=== PATIENT | male | born 1950 | race Two or more races ===

== ENCOUNTER 2020-05-14 14:54 | Emergency (ER) | payer MEDICARE, SELFPAY ==
[2020-05-14 16:40] VITALS: BP 124/71; PULSE 98; RESP 16; TEMP 36.4; O2SAT 98; BMI 31.3
[2020-05-14 20:20] VITALS: BP 141/94; PULSE 86; RESP 16; TEMP 36.8; O2SAT 98
--- NOTE | 2020-05-14 20:55 | CT_ITS ---
EXAMINATION: CT ABDOMEN AND PELVIS WITHOUT CONTRAST CLINICAL INFORMATION: Left flank pain. Left UVJ stone. COMPARISON: Renal ultrasound 01/27/2019. CT scan abdomen pelvis 02/18/2018. KUB 07/17/2009, 01/18/2010 TECHNIQUE: Multidetector volumetric imaging was performed from the superior aspect of the liver through the pubic symphysis. Sagittal and coronal reformatted images were obtained on the technologist's workstation. This CT examination was performed using dose optimization techniques as appropriate, variously including the following: *Automated exposure control *Adjustment of mA and/or kV according to patient size (this includes techniques or standardized protocols for targeted exams where dose is matched to indication/reason for exam; i.e. extremities or head) *Use of iterative reconstruction technique DLP: 666 mGy-cm FINDINGS: LUNG BASES: The visualized lung bases are unremarkable. LIVER, GALLBLADDER, AND BILIARY TREE: The liver is normal in size, shape, and attenuation. No focal hepatic lesion or biliary ductal dilatation is present. The gallbladder is unremarkable with no evidence of radiopaque gallstones, gallbladder wall thickening, or obvious pericholecystic inflammatory changes. PANCREAS: Unremarkable. SPLEEN: Unremarkable. ADRENAL GLANDS: Unremarkable. KIDNEYS AND URETERS: Right kidney: Linear 3 mm calcification lower pole of the right kidney is nonobstructive. No ureteral stone. No hydronephrosis. Left kidney: There is moderate hydronephrosis with distention renal pelvis and calyces with edema around the collecting system. There is left hydroureter to the ureterovesical junction. There are multiple stones in the left ureter. There is a stone in the mid proximal ureter at about the level of L4-L5 that measures 7 x 4 mm. More distally in the left ureter just proximal to the ureterovesical junction is a cluster of 3 stones. There is a 5 mm stone there are 2 smaller stones measuring about 3 mm just distal to the larger stone. In the left kidney there is a 3 mm stone in the upper pole There is a parapelvic cyst in the upper pole measuring 3.8 cm. BLADDER: Partially filled. No bladder calculus or mass. GASTROINTESTINAL TRACT: There are scattered diverticula throughout the colon. There is no diverticulitis. There is no bowel wall thickening /edema. There is no bowel obstruction. There is a moderate volume of stool in the colon. The appendix is normal . The small bowel loops are unremarkable. The stomach is normal. There is no hiatal hernia. ABDOMINAL WALL: No significant hernia is appreciated. LYMPH NODES: Normal. VASCULAR: Unremarkable. PELVIC VISCERA: Prostate measures 4.6 cm transverse. Small calcifications in the prostate. OSSEOUS STRUCTURES: Unremarkable. CT/CT abdomen pelvis wo con IMPRESSION: 1. Moderate hydronephrosis of left kidney due to multiple stones in the left ureter. There are small nonobstructive bilateral renal stones as well. 2. Scattered diverticula of the colon. There is no acute abnormality of the bowel.
--- NOTE | 2020-05-14 21:26 | ED_ITS ---
HPI - Abdominal Pain General Chief Complaint: Abdominal Pain Stated Complaint: kidney stone Time Seen by Provider: 05/14/20 20:52 Source: patient Mode of arrival: ambulatory Limitations: no limitations History of Present Illness HPI narrative: patient's history of kidney stone noticed sudden onset of sharp pain on the left flank since yesterday today pain is more localized in left lower quadrant associated with nausea and vomiting patient denies any fever or diarrhea no other symptoms otherwise MD elicited complaint: abdominal pain Pertinent past history: none Onset (ago): day(s) (2) Pain Consistency: constant Related Data Previous Rx's Medication Instructions Recorded oxycodone 5 mg PO Q6H PRN #20 tab 05/14/20 tamsulosin [Flomax] 0.4 mg PO DAILY #14 cap 05/14/20 Allergies Allergy/AdvReac Type Severity Reaction Status Date / Time No Known Allergies Allergy Unverified 03/26/20 17:01 [No Known Allergies*] Review of Systems Review of Systems REVIEW OF SYSTEMS: Pertinent positives and negatives are stated above in the history. GEN: no fevers, chills, fatigue HEENT: no nasal congestion, sore throat, ear pain NEURO: no headache, dizziness, focal weakness PULM: no cough, shortness of breath CV: no chest pain, palpitations, LE edema ABD: no diarrhea /melena : no dysuria, urgency, frequency SKIN: no rash ROS otherwise negative x 10 Physical Exam Vital Signs: Vital Signs: Last Vital Signs Temp 98.3 F 05/14/20 20:20 Pulse 86 05/14/20 20:20 Resp 16 05/14/20 20:20 BP 141/94 H 05/14/20 20:20 Pulse Ox 98 05/14/20 20:20 Body Mass Index 31.3 Appearance: Alert. Oriented X3. in moderate distress. Eyes: Pupils equal, round and reactive to light. ENT: Pharynx normal. Neck: Normal inspection. Neck supple. CVS: Normal heart rate and rhythm. Pulses normal. Respiratory: No respiratory distress. Breath sounds normal. Abdomen: Soft and mild tenderness left lower quadrant and left flank area no rebound tenderness or guarding no mass palpable no hernia palpable Skin: Skin warm and dry. Normal skin color. Normal skin turgor. Extremities: No lower extremity edema. Good range of movement Neuro: Oriented X 3. No motor deficit. No sensory deficit. Course Course Course Narrative: patient with multiple left ureteric stone with hydronephrosis at this time patient is much better from pain saleem will discharge him home on oxycodone advised to follow-up with urologist MDM - Abdominal Pain Differential Diagnosis Differential diagnosis: Likely calculus of kidney and diverticulitis Lab Data Attestation: I reviewed the patient's lab results. Result diagrams: 05/14/20 21:21 05/14/20 21:46 Labs: Lab Results 05/14/20 05/14/20 05/14/20 Range/Units 21:21 21:21 21:21 WBC 10.9 H (4.8-10.8) X10*3/uL RBC 5.08 (4.60-5.80) X10*6/uL Hgb 15.8 (14.0-18.0) g/dl Hct 47.5 (42-52) % MCV 93.5 (80-98) fL MCH 31.1 (27.0-33.0) pg MCHC 33.3 (31.0-36.0) g/dl RDW 12.1 (11.0-16.0) % Plt Count 189 (160-400) X10*3/uL MPV 11.2 (9.4-12.4) fL Immature Gran % (Auto) 0.3 (0.0-0.4) % Neut % (Auto) 66.9 (45-73) % Lymph % (Auto) 23.3 (20-40) % [place] % (Auto) 7.0 (2-11) % Eos % (Auto) 2.2 (0-4) % Baso % (Auto) 0.3 (0-2) % Lymph # (Auto) 2.5 (1.2-4.9) X10*3/uL [place] # (Auto) 0.8 (0.1-1.2) X10*3/uL Eos # (Auto) 0.2 (0.0-0.4) X10*3/uL Baso # (Auto) 0.0 (0.0-0.2) X10*3/uL Abs Immat Gran (auto) 0.03 (0.00-0.03) X10*3/uL Absolute Neuts (auto) 7.3 (2.0-8.3) X10*3/uL Absolute Nucleated RBC 0.000 (0.0-0.012) X10*3/uL Nucleated RBC % (auto) 0.0 (0.0-0.2) /100WBC Sodium Cancelled Potassium Cancelled Chloride Cancelled Carbon Dioxide Cancelled Anion Gap Cancelled BUN Cancelled Creatinine Cancelled Estim Creat Clear Calc Cancelled Estimated GFR Cancelled Random Glucose Cancelled Calcium Cancelled Urine Color PINK Urine Appearance HAZY Urine pH 5.0 (5.0-8.0) Ur Specific [place] 1.025 (1.005-1.025) Urine Protein 2+ H (NEG-TRACE) MG/DL Urine Glucose (UA) NEG (NEG) MG/DL Urine Ketones NEG (NEG) MG/DL Urine Blood 3+ H (NEG) Urine Nitrite NEG (NEG) Ur Leukocyte Esterase NEG (NEG) Urine RBC 76-150 H (0) /HPF Urine WBC 0 (0-4) /HPF Ur Squamous Epith Cells TRACE /LPF Urine Bacteria NONE /LPF Urine Mucus TRACE /LPF 05/14/20 Range/Units 21:46 WBC (4.8-10.8) X10*3/uL RBC (4.60-5.80) X10*6/uL Hgb (14.0-18.0) g/dl Hct (42-52) % MCV (80-98) fL MCH (27.0-33.0) pg MCHC (31.0-36.0) g/dl RDW (11.0-16.0) % Plt Count (160-400) X10*3/uL MPV (9.4-12.4) fL Immature Gran % (Auto) (0.0-0.4) % Neut % (Auto) (45-73) % Lymph % (Auto) (20-40) % [place] % (Auto) (2-11) % Eos % (Auto) (0-4) % Baso % (Auto) (0-2) % Lymph # (Auto) (1.2-4.9) X10*3/uL [place] # (Auto) (0.1-1.2) X10*3/uL Eos # (Auto) (0.0-0.4) X10*3/uL Baso # (Auto) (0.0-0.2) X10*3/uL Abs Immat Gran (auto) (0.00-0.03) X10*3/uL Absolute Neuts (auto) (2.0-8.3) X10*3/uL Absolute Nucleated RBC (0.0-0.012) X10*3/uL Nucleated RBC % (auto) (0.0-0.2) /100WBC Sodium 138 Potassium 4.2 Chloride 105 Carbon Dioxide 22 Anion Gap 15 BUN 28 H Creatinine 1.35 Estim Creat Clear Calc 55.4 Estimated GFR 52 Random Glucose 94 Calcium 8.5 Urine Color Urine Appearance Urine pH (5.0-8.0) Ur Specific [place] (1.005-1.025) Urine Protein (NEG-TRACE) MG/DL Urine Glucose (UA) (NEG) MG/DL Urine Ketones (NEG) MG/DL Urine Blood (NEG) Urine Nitrite (NEG) Ur Leukocyte Esterase (NEG) Urine RBC (0) /HPF Urine WBC (0-4) /HPF Ur Squamous Epith Cells /LPF Urine Bacteria /LPF Urine Mucus /LPF Imaging Data CT scan - abdomen: Attestation: I personally reviewed and interpreted this imaging study as follows: Radiologist's impression: CT/CT abdomen pelvis wo con IMPRESSION: 1. Moderate hydronephrosis of left kidney due to multiple stones in the left ureter. There are small nonobstructive bilateral renal stones as well. 2. Scattered diverticula of the colon. There is no acute abnormality of the bowel. Discharge Plan Discharge Clinical Impression: Calculus of kidney Patient Disposition: Home, Self-Care Instructions: Kidney Stones (ED) Additional Instructions: drink plenty of fluids and take pain medicine as advised. Report to the ER if worsening of the pain. Follow with urologist Prescriptions: New oxycodone 5 mg tablet 5 mg PO Q6H PRN (Reason: pain) Qty: 20 RF: 0 tamsulosin [Flomax] 0.4 mg capsule 0.4 mg PO DAILY Qty: 14 RF: 0 Referrals: Shiva Weir III, MD [Physician] - 2 days Interventions: ED Discharge Assessment Last Done: 05/14/20 23:25 Discharge Date/Time: 05/14/20 23:26 Print Language: German FORMERLY [facility], [facility]1983 Past Medical History Medical History Diabetes HTN (hypertension) Social History Social History Alcohol intake: never Smoking Status: Former smoker Use of substances other than those prescribed or required for medical reasons: No Advance Directives: No Advance Directives Information Provided: No
[2020-05-14 21:28] LABS: MANUAL DIFF FLAG NO
[2020-05-14] MEDS: Ketorolac Tromethamine 30 MG/ML VIAL IVPUSH (21:29)
[2020-05-14] MEDS: Morphine Sulfate 4 MG/ML CARTRIDGE IVPUSH (21:30)
[2020-05-14] MEDS: ondansetron HCL 4 MG/2 ML VIAL IVPUSH (21:30)
[2020-05-14] MEDS: 0.9 % Sodium Chloride 1,000 ML 999 ML IVCONT (21:30)
[2020-05-14 21:35] LABS: Glucose Urine UA NEG (NEG); Leukocyte Esterase Urine NEG (NEG); Nitrite Urine NEG (NEG); Specific Gravity - Urine 1.025 (1.005-1.025); Urine Blood 3+ (NEG); Urine Ketones NEG (NEG); Urine Protein 2+ MG/DL (NEG-TRACE)
[2020-05-14 21:38] LABS: Basophils Percent Auto 0.3 % (0-2); Eosinophils Absolute Auto 0.2 X10*3/uL (0.0-0.4); Eosinophils Percent Auto 2.2 % (0-4); Hematocrit 47.5 % (42-52); Hemoglobin 15.8 g/dl (14.0-18.0); Imm Gran Abs Auto 0.03 X10*3/uL (0.00-0.03); Imm Gran Pct Auto 0.3 % (0.0-0.4); Lymphocytes Absolute Auto 2.5 X10*3/uL (1.2-4.9); Lymphocytes Percent Auto 23.3 % (20-40); Mean Corpuscular HGB Conc 33.3 g/dl (31.0-36.0); Mean Corpuscular Hemoglobin 31.1 pg (27.0-33.0); Mean Corpuscular Volume 93.5 fL (80-98); Mean Platelet Volume 11.2 fL (9.4-12.4); Monocytes Absolute Auto 0.8 X10*3/uL (0.1-1.2); Neutrophils Absolute Auto 7.3 X10*3/uL (2.0-8.3); Neutrophils Percent Auto 66.9 % (45-73); Platelet Count 189 X10*3/uL (160-400); Red Blood Count 5.08 X10*6/uL (4.60-5.80); Red Cell Distribution Width 12.1 % (11.0-16.0); White Blood Count 10.9 X10*3/uL (4.8-10.8)
[2020-05-14 21:40] LABS: Appearance Urine HAZY; Color Urine PINK
[2020-05-14 21:52] LABS: Squamous Epithelial Cell Urine TRACE /LPF; WBC Urine 0 /HPF (0-4)
[2020-05-14 21:53] LABS: Mucus Urine TRACE /LPF
[2020-05-14 22:21] LABS: Anion Gap 15 (12-20); Blood Urea Nitrogen 28 mg/dL (9-16); Calcium 8.5 mg/dL (8.4-10.2); Carbon Dioxide 22 mmol/L (22-29); Chloride 105 mmol/L (96-108); Creatinine Clr Calc Pharmacy 55.4; Estimated Glomerular Filt Rate 52; Glucose Random 94 mg/dL (60-115); Potassium 4.2 mmol/l (3.3-5.1); Sodium 138 mmol/L (135-145)
[2020-05-14] MEDS: Tamsulosin HCL 0.4 MG CAPSULE PO (23:15)
[2020-05-14] MEDS: oxyCODONE HCl Immed Release 5 MG TABLET 10 MG PO (23:15)
== END 2020-05-14 23:26 | disposition home or self-care (01) ==
PROVIDERS: Emergency Provider Internal Medicine
DX: N20.0 Calculus of kidney (principal); Z79.899 Other long term (current) drug therapy
CPT/HCPCS: 36415; 74176; 80048; 81001; 85025; 96361; 96374; 96375; 99284; J1885; J2270; J2405

== ENCOUNTER 2020-05-27 08:55 | Outpatient (REF) | payer MEDICARE, SELFPAY | END 2020-05-27 08:56 | disposition home or self-care (01) | LOC: HO.LAB 08:55 | PROVIDERS: Visit Provider Internal Medicine | DX: Z20.828 Contact with and (suspected) exposure to other viral communicable diseases (principal) | CPT/HCPCS: C9803; U0003 ==

== ENCOUNTER 2023-01-13 11:51 | Emergency (ER) | payer MEDICARE, OTHER, SELFPAY ==
[2023-01-13 12:01] VITALS: BP 114/67; PULSE 87; RESP 17; TEMP 36.6; O2SAT 98; BMI 37.0
--- NOTE | 2023-01-13 12:01 | ED.GENADULT ---
HPI - General Adult General Chief complaint: Eye Problems Stated complaint: L eye injury Time Seen by Provider: 01/13/23 12:28 Related Data Home Medications ?Medication ?Instructions ?Recorded ?Confirmed blood sugar diagnostic (Emperatriz #10 ea 05/29/23 07/12/23 Ultra Test strips) glipizide 5 mg tablet, extended 5 mg PO BID 05/29/23 07/12/23 release 24 hr lancets 33 gauge (Emperatriz Erickson #100 ea 05/29/23 07/12/23 Plus Lancet) lisinopril 10 mg tablet 10 mg PO DAILY 05/29/23 07/12/23 metformin 1,000 mg tablet 1,000 mg PO BID 05/29/23 07/12/23 Previous Rx's ?Medication ?Instructions ?Recorded erythromycin 5 mg/gram (0.5 %) eye 0.5 inch ophthalmic (eye) QID 7 01/13/23 ointment days #3.5 grams tamsulosin 0.4 mg capsule (Flomax) 0.4 mg PO BEDTIME #10 caps 05/24/23 Allergies Allergy/AdvReac Type Severity Reaction Status Date / Time No Known Allergies Allergy Verified 05/29/23 15:26 [No Known Allergies*] [facility] Past Medical History Medical History Kidney stone HTN (hypertension) Diabetes Social History Social History Alcohol intake: never Physical Exam ED Vital Signs: BMI result Body Mass Index 37.0 Course Course Course Narrative: This is an RME: Additional HPI, ROS, PE not included below will be deferred to primary provider.Patient is a 73 year old male with no medical history presenting with left eye pain following cutting it with a box yesterday. Patient is not a contact wearer. Pain is 6/10. Plan: visual acuity, fluorescein staining Medications Administered Discontinued Medications Generic Name Dose Route Start Last Admin Trade Name Freq PRN Reason Stop Dose Admin Diphtheria/Tetanus/Acell Pertussis 0.5 ml 01/13/23 13:24 01/13/23 13:39 Diphth,Pertus(Acell),Tet Adult 0.5 Ml Syringe IM 01/13/23 13:25 0.5 ml .ONCE ONE Administration Fluorescein Sodium 1 strip 01/13/23 12:00 01/13/23 13:15 Fluorescein Sodium Strip EYE-BOTH 01/13/23 12:01 1 strip ONCE ONE Administration Tetracaine HCl 3 drop 01/13/23 12:00 01/13/23 13:15 Tetracaine Hcl/Pf 0.5% Oph Leeanna 4 Ml Drops EYE-BOTH 01/13/23 12:01 3 drop ONCE ONE Administration Discharge Plan Discharge Clinical Impression: Corneal abrasion Patient Disposition: Home, Self-Care Instructions: Corneal Abrasion (ED) Additional Instructions: regrese al servicio de urgencias si empeora el dolor ocular, empeora la secreci?n, empeora el enrojecimiento, dolor de andrei, karl en los ojos, dolor de andrei, mareos, secreci?n awa, secreci?n amarilla, cambio en la visi?n, p?rdida de la visi?n o cualquier otro s?ntoma preocupante. Por favor, seguimiento con el oftalm?logo. Prescriptions: New erythromycin 5 mg/gram (0.5 %) ointment 0.5 inch ophthalmic (eye) QID 7 Days Qty: 3.5 0RF No Action tamsulosin [Flomax] 0.4 mg capsule 0.4 mg PO BEDTIME Qty: 10 0RF (DME) OneTouch Ultra Test Strip See Rx Instructions .ROUTE .MEDSUPPLY Qty: 10 Rx Instructions: As directed (DME) lancets [OneTouch Delica Plus Lancet] 33 gauge misc See Rx Instructions .ROUTE .MEDSUPPLY Qty: 100 Rx Instructions: As directed lisinopril 10 mg tablet 10 mg PO DAILY metformin 1,000 mg tablet 1,000 mg PO BID glipizide 5 mg tablet extended release 24hr 5 mg PO BID Referrals: Logan Ramirez [Physician] - (Left corneal abrasion) Interventions: ED Discharge Assessment Last Done: 01/13/23 13:53 Discharge Date/Time: 01/13/23 13:57 Print Language: Prydeinig
--- NOTE | 2023-01-13 13:31 | ED.GENADULT ---
HPI - General Adult General Chief complaint: Eye Problems Stated complaint: L eye injury Time Seen by Provider: 01/13/23 12:28 Source: patient Mode of arrival: ambulatory Limitations: no limitations History of Present Illness HPI narrative: 72 yold male presents to the ED for left eye discomfor with redness since yesterday. patient states yesteray he was lifting cardboard boxes and the edge of a cardbaord hit his left eye. Patient denies any loss of vision. Related Data Previous Rx's Medication Instructions Recorded oxycodone 5 mg tablet 5 mg PO Q6H PRN pain #20 tabs 05/14/20 tamsulosin 0.4 mg capsule (Flomax) 0.4 mg PO DAILY #14 caps 05/14/20 erythromycin 5 mg/gram (0.5 %) eye 0.5 inch ophthalmic (eye) QID 7 01/13/23 ointment days #3.5 grams naproxen 500 mg tablet 500 mg PO BID PRN pain 7 days #14 01/13/23 tabs Allergies Allergy/AdvReac Type Severity Reaction Status Date / Time No Known Allergies Allergy Verified 01/13/23 12:00 [No Known Allergies*] Review of Systems Review of Systems: left eye redness and discofmort Yes all other systems are reviewed and are negative [facility] Past Medical History Medical History Diabetes HTN (hypertension) Social History Social History (System 12/02/20 @ 11:28 by Elizabeth Polk) Alcohol intake: never Advance Directives: No Advance Directives Information Provided: Yes Physical Exam ED Vital Signs: Vital Signs - 24 hr 01/13/23 12:01 Temperature 98 F Pulse Rate 87 Respiratory Rate 17 Blood Pressure 114/67 Pulse Oximetry 98 Oxygen Delivery Method Room Air BMI result Body Mass Index 37.0 Const General: cooperative, healthy appearing, comfortable, no acute distress, well developed, alert, awake and Physically active Orientation/consciousness: oriented to person, oriented to place, oriented to time and patient oriented x3 HENMT Head: Yes normal to inspection, Yes No palpable skull fracture present, Yes normocephalic and Yes atraumatic Eyes Other: Left eye: postivie for conjuctival erythema. Negative for foreign body. Psotive for corneal abrasions with fluroscein dye under wood's lamp. tetracaine used for anesthesia RIght eye is normal Visual acuity left eye 20/70, RIght eye 20/40, together 20/40 General: appearance normal, both eyes and all related structures Pupils: Equal, round and reactive pupils present Neck Neck: Yes normal visual inspection, Yes full ROM, Yes no lymphadenopathy, Yes no meningeal signs, Yes trachea midline, Yes supple, No anterior neck swelling and No tender Chest Chest palpation & inspection: normal inspection of the chest and normal palpation of entire chest wall Resp Effort & Inspection: normal respiratory effort and able to speak in complete sentences Auscultation: clear to auscultation bilaterally Cardio Jugular venous distension: no JVD Heart sounds: S1 normal heart sound present and S2 normal heart sound present GI Inspection: Yes normal to inspection and No abdominal wall ecchymosis Palpation (GI): Soft to palpation, not firm, nontender, no guarding and not rigid General: No CVA tenderness and Yes no CVA tenderness Back/Spine/Pelvis Back: no CVA tenderness, No CVA tenderness and No back tenderness Skin General skin exam: no rashes or lesions noted, elasticity normal and turgor normal Neuro General: oriented to person, oriented to place, oriented to time, patient oriented x3, gait normal, tone normal, moves all extremities, Normal light touch and pain sensation, no meningeal signs, no focal motor deficits, CN's II-XI intact bilaterally and normal sensation to monofilament Cranial nerves: Yes Equal, round and reactive pupils present Extrem General: Yes normal to inspection and Yes full ROM Psych Appearance: grossly normal, well kempt and not disheveled Medications Administered Discontinued Medications Generic Name Dose Route Start Last Admin Trade Name Chantelle PRN Reason Stop Dose Admin Diphtheria/Tetanus/Acell Pertussis 0.5 ml 01/13/23 13:24 01/13/23 13:39 Diphth,Pertus(Acell),Tet Adult 0.5 Ml Syringe IM 01/13/23 13:25 0.5 ml .ONCE ONE Administration Fluorescein Sodium 1 strip 01/13/23 12:00 01/13/23 13:15 Fluorescein Sodium Strip EYE-BOTH 01/13/23 12:01 1 strip ONCE ONE Administration Tetracaine HCl 3 drop 01/13/23 12:00 01/13/23 13:15 Tetracaine Hcl/Pf 0.5% Oph Leeanna 4 Ml Drops EYE-BOTH 01/13/23 12:01 3 drop ONCE ONE Administration Medical Decision Making Medical Decision Making MDM Narrative: 72-year-old male with left eye discomfort with redness after edge of cardboard box scratches eye. Eye exam shows corneal abrasion under fluorescein dye with Wood's lamp. Not suspecting retinal detachment, globe rupture, foreign body, episcleritis, scleritis, or glaucoma. Patient will be discharged with erythromycin ointment. Tdap ordered. Differential Diagnosis Differential Diagnoses: The differential diagnosis associated with the presentation includes ( Retinal detachment, globe rupture, corneal abrasion, foreign body, episcleritis, scleritis, glaucoma,) Admission/Observation Consideration of admission/observation: Escalation of care including admission/observation considered Prescription Management I considered prescription management with: Pain Medication and Antibiotic (erythromycin) Discharge Plan Discharge Clinical Impression: Corneal abrasion Patient Disposition: Home, Self-Care Instructions: Corneal Abrasion (ED) Additional Instructions: regrese al servicio de urgencias si empeora el dolor ocular, empeora la secreci?n, empeora el enrojecimiento, dolor de andrei, karl en los ojos, dolor de andrei, mareos, secreci?n awa, secreci?n amarilla, cambio en la visi?n, p?rdida de la visi?n o cualquier otro s?ntoma preocupante. Por favor, seguimiento con el oftalm?logo. Prescriptions: New erythromycin 5 mg/gram (0.5 %) ointment 0.5 inch ophthalmic (eye) QID 7 Days Qty: 3.5 0RF naproxen 500 mg tablet 500 mg PO BID PRN (Reason: pain) 7 Days Qty: 14 0RF No Action oxycodone 5 mg tablet 5 mg PO Q6H PRN (Reason: pain) Qty: 20 0RF tamsulosin [Flomax] 0.4 mg capsule 0.4 mg PO DAILY Qty: 14 0RF Referrals: Logan Ramirez [Physician] - (Left corneal abrasion) Interventions: ED Discharge Assessment Last Done: 01/13/23 13:53 Discharge Date/Time: 01/13/23 13:57 Print Language: Maori
== END 2023-01-13 13:57 | disposition home or self-care (01) ==
PROVIDERS: Emergency Provider Emergency Medicine Emergency Medical Services
DX: S05.02XA Injury of conjunctiva and corneal abrasion without foreign body, left eye, initial encounter (principal); H57.12 Ocular pain, left eye; Y28.9XXA Contact with unspecified sharp object, undetermined intent, initial encounter; Y93.9 Activity, unspecified; Y92.9 Unspecified place or not applicable; Y99.9 Unspecified external cause status; Z23 Encounter for immunization; Z79.899 Other long term (current) drug therapy
CPT/HCPCS: 90471; 90715; 99282; 99284

== ENCOUNTER 2023-05-24 17:30 | Emergency (ER) | payer MEDICARE, SELFPAY ==
--- NOTE | ~2023-05-24 | CT_ITS ---
EXAMINATION: CT ABDOMEN AND PELVIS WITHOUT CONTRAST CLINICAL INFORMATION: Left renal colic; question calculus. COMPARISON: CT abdomen and pelvis dated 05/14/2020; renal ultrasound dated 01/27/2019. TECHNIQUE: Multidetector volumetric imaging was performed from the superior aspect of the liver through the pubic symphysis. Sagittal and coronal reformatted images were obtained on the technologist's workstation. This CT examination was performed using dose optimization techniques as appropriate, variously including the following: *Automated exposure control *Adjustment of mA and/or kV according to patient size (this includes techniques or standardized protocols for targeted exams where dose is matched to indication/reason for exam; i.e. extremities or head) *Use of iterative reconstruction technique DLP: 732 mGy-cm FINDINGS: LUNG BASES: The visualized lung bases are unremarkable. LIVER, GALLBLADDER, AND BILIARY TREE: The liver is normal in size, shape, and attenuation. No focal hepatic lesion or biliary ductal dilatation is present. The gallbladder is unremarkable with no evidence of radiopaque gallstones, gallbladder wall thickening, or obvious pericholecystic inflammatory changes. PANCREAS: Unremarkable. SPLEEN: Unremarkable. ADRENAL GLANDS: Unremarkable. KIDNEYS AND URETERS: The kidneys are normal in size, shape, and attenuation. At the upper pole of the left kidney (3:34), a 4.1 cm simple cyst is seen, for which no imaging follow-up is recommended. At the interpolar left kidney (3:38), there are 5 mm and 9 mm nonobstructing calculi. At the lower pole of the left kidney (3:44), a 4 mm nonobstructing calculus is seen. There is moderate left hydronephroureter secondary to a 6 mm ovoid calculus situated within the proximal left ureter. There is moderate left perinephric stranding. No right urinary calculus or obstruction is noted. BLADDER: Partially contracted and otherwise unremarkable. GASTROINTESTINAL TRACT: There is moderate diverticulosis, without acute diverticulitis. No bowel obstruction, free intraperitoneal air or abscess is seen. There is no focal bowel wall thickening. The vermiform appendix is not identified with certainty; however, there is no finding to suggest appendicitis. ABDOMINAL WALL: No significant hernia is appreciated. LYMPH NODES: Normal. VASCULAR: Unremarkable. PELVIC VISCERA: The prostate and seminal vesicles are unremarkable. There are coarse prostate calcifications. OSSEOUS STRUCTURES: At L4-L5 and L5-S1, there is marked degenerative disc disease, with vacuum phenomenon. There is multi-level marked lower thoracic and mild to moderate lumbar spondylosis. No acute or aggressive osseous finding is seen. CT/CT abdomen pelvis wo IV con IMPRESSION: 1. There is moderate left hydronephroureter secondary to a 6 mm ovoid calculus situated within the proximal left ureter. There are further nonobstructing left renal interpolar and lower pole calculi. 2. There is moderate diverticulosis, without acute diverticulitis. No appendicitis is seen. 3. There are degenerative changes of the thoracolumbar spine, most pronounced at L4-L5 and L5-S1. Fleischner guidelines were followed.
[2023-05-24 17:33] VITALS: BP 148/71; PULSE 83; RESP 16; TEMP 36.7; O2SAT 96; BMI 37.3
[2023-05-24 17:51] LABS: MANUAL DIFF FLAG NO
[2023-05-24 18:03] VITALS: BP 126/61; PULSE 78; RESP 18; TEMP 36.9; O2SAT 98
[2023-05-24 18:03] LABS: Appearance Urine Clear; Color Urine Yellow; Glucose Urine UA Negative (Negative); Leukocyte Esterase Urine Negative (Negative); Nitrite Urine Negative (Negative); PH 5.5 (5.0-9.0); UMIC TRIGGER UACC YES; Urine Blood Large (3+) (Negative); Urine Ketones Negative (Negative); Urine Protein Trace mg/dL (Neg-Trace)
[2023-05-24 18:06] LABS: Bacteria Urine None Seen (None Seen); Hyaline Casts Urine 0-2 /LPF (0-2); RBC Urine >20 /HPF (0-2); Squamous Epithelial Cell Urine 0-2 /HPF (0-2); WBC Urine 0-5 /HPF (0-5)
[2023-05-24 18:10] LABS: Basophils Percent Auto 0.3 % (0-2); Eosinophils Absolute Auto 0.1 X10*3/uL (0.0-0.4); Eosinophils Percent Auto 1.4 % (0-4); Hematocrit 42.6 % (42.0-52.0); Imm Gran Abs Auto 0.03 X10*3/uL (0.00-0.03); Imm Gran Pct Auto 0.3 % (0.0-0.4); Lymphocytes Absolute Auto 2.7 X10*3/uL (1.2-4.9); Lymphocytes Percent Auto 26.6 % (20-40); Mean Corpuscular HGB Conc 32.9 g/dl (31.0-36.0); Mean Corpuscular Volume 94.5 fL (80.0-98.0); Mean Platelet Volume 11.3 fL (9.4-12.4); Monocytes Absolute Auto 0.5 X10*3/uL (0.1-1.2); Monocytes Percent Auto 5.3 % (2-11); Neutrophils Absolute Auto 6.7 x10*3/uL (2.0-8.3); Neutrophils Percent Auto 66.1 % (45-73); Platelet Count 190 X10*3/uL (160-400); Red Blood Count 4.51 X10*6/uL (4.60-5.80); Red Cell Distribution Width 12.3 % (11.0-16.0); White Blood Count 10.2 X10*3/uL (4.8-10.8)
[2023-05-24 18:15] LABS: Alanine Aminotransferase 27 U/L (0-40); Albumin Level 4.6 g/dL (3.5-5.0); Alkaline Phosphatase 77 U/L (39-117); Anion Gap 13 (12-20); Aspartate Amino Transferase 30 U/L (5-37); Bilirubin Total 0.6 mg/dL (0.0-1.0); Blood Urea Nitrogen 28 mg/dL (9-16); Calcium 9.5 mg/dL (8.4-10.2); Carbon Dioxide 24 mmol/L (22-29); Chloride 109 mmol/L (96-108); Creatinine Clr Calc Pharmacy 42.3; Estimated Glomerular Filt Rate 39; Glucose Random 180 mg/dL (60-115); Potassium 4.6 mmol/L (3.3-5.1); Sodium 141 mmol/L (135-145); Total Protein 7.6 g/dL (6.5-8.0)
--- NOTE | 2023-05-24 18:24 | ED_ITS ---
HPI - Back Pain/Injury General Chief Complaint: Abdominal Pain Stated Complaint: low back pain Time Seen by Provider: 05/24/23 18:11 Source: patient Mode of arrival: ambulatory Limitations: no limitations History of Present Illness HPI Narrative: Patient's history of kidney stone last kidney stone was in 2019 complaining of pain in the left flank started yesterday evening got worse today with nausea vomiting , sharp in character radiating to the testicle no fever no chills no gross hematuria Related Data Previous Rx's Medication Instructions Recorded oxycodone 5 mg tablet 5 mg PO Q6H PRN pain #20 tabs 05/14/20 tamsulosin 0.4 mg capsule (Flomax) 0.4 mg PO DAILY #14 caps 05/14/20 erythromycin 5 mg/gram (0.5 %) eye 0.5 inch ophthalmic (eye) QID 7 01/13/23 ointment days #3.5 grams naproxen 500 mg tablet 500 mg PO BID PRN pain 7 days #14 01/13/23 tabs morphine 15 mg immediate release 15 mg PO Q8H PRN pain #15 tabs 05/24/23 tablet ondansetron 4 mg disintegrating 4 mg PO Q6-8H PRN nausea and 05/24/23 tablet vomiting #7 tabs tamsulosin 0.4 mg capsule (Flomax) 0.4 mg PO BEDTIME #10 caps 05/24/23 Allergies Allergy/AdvReac Type Severity Reaction Status Date / Time No Known Allergies Allergy Verified 05/24/23 17:36 [No Known Allergies*] Review of Systems 2 Review of Systems: Yes all other systems are reviewed and are negative PMFSH Past Medical History Medical History (Updated 05/24/23 @ 22:58 by Bryan Miller MD) Kidney stone HTN (hypertension) Diabetes Social History Social History Alcohol intake: never Smoked in Last 30 Days: No Use of substances other than those prescribed or required for medical reasons: No Advance Directives: No Advance Directives Information Provided: Yes Physical Exam 2 Vital Signs: Vital Signs: Last Vital Signs Temp 98.0 F 05/24/23 22:58 Pulse 62 05/24/23 22:58 Resp 20 05/24/23 22:58 BP 129/63 05/24/23 22:58 Pulse Ox 99 05/24/23 22:58 O2 Del Method Room Air 05/24/23 22:58 BMI result Body Mass Index 37.3 Appearance: Alert. Oriented X3. In moderate distress Eyes: No pallor or icterus ENT: Pharynx normal. Oral Mucosa moist Neck: Normal inspection. Neck supple. CVS: Normal heart rate and rhythm. Pulses normal. Respiratory: No respiratory distress. Equal air entry bilateral, no wheezing/rales/rhonchi Abdomen: Soft, mild deep tenderness left side. Bowel sounds are present, no mass palpable, L CVA tenderness Skin: Skin warm and dry. Normal skin color. Normal skin turgor. Extremities: No lower extremity edema. No calf tenderness Neuro: Oriented X 3. Medications Administered Discontinued Medications Generic Name Dose Route Start Last Admin Trade Name Freq PRN Reason Stop Dose Admin Sodium Chloride 1,000 mls @ 999 mls/hr 05/24/23 18:31 05/24/23 20:05 Ns IV 05/24/23 19:31 Infused .Q1H1M ONE Infusion Ketorolac Tromethamine 30 mg 05/24/23 18:31 05/24/23 18:57 Ketorolac Tromethamine 30 Mg/Ml Vial IVPUSH 05/24/23 18:32 30 mg ONCE ONE Administration Morphine Sulfate 4 mg 05/24/23 18:31 05/24/23 19:00 Morphine Sulfate 4 Mg/Ml Cartridge IVPUSH 05/24/23 18:32 4 mg ONCE ONE Administration Protocol Ondansetron HCl 4 mg 05/24/23 18:31 05/24/23 18:56 Ondansetron Hcl 4 Mg/2 Ml Vial IVPUSH 05/24/23 18:32 4 mg ONCE ONE Administration Oxycodone HCl 10 mg 05/24/23 22:15 05/24/23 22:54 Oxycodone Hcl Immed Release 5 Mg Tablet PO 05/24/23 22:16 10 mg ONCE ONE Administration Tamsulosin HCl 0.4 mg 05/24/23 18:31 05/24/23 18:54 Tamsulosin Hcl 0.4 Mg Capsule PO 05/24/23 18:32 0.4 mg ONCE ONE Administration Medical Decision Making Medical Decision Making MDM Narrative: Patient with 6 mm proximal ureteral stone the left side responded to pain medication and IV hydration also has slightly elevated creatinine to 1.73 from baseline 1.3 which was in 2020. Patient advised to follow-up with urologist pain medication were given Differential Diagnosis Differential Diagnoses: The differential diagnosis associated with the presentation includes Renal colic/UTI/diverticulitis Admission/Observation Consideration of admission/observation: Escalation of care including admission/observation considered Lab Data MDM Lab Attestation statement: I reviewed the patient's lab results. 05/24/23 17:47 05/24/23 17:47 Labs: Lab Results 05/24/23 Range/Units 17:47 WBC 10.2 (4.8-10.8) X10*3/uL RBC 4.51 L (4.60-5.80) X10*6/uL Hgb 14.0 (14.0-18.0) g/dl Hct 42.6 (42.0-52.0) % MCV 94.5 (80.0-98.0) fL MCH 31.0 (27.0-33.0) pg MCHC 32.9 (31.0-36.0) g/dl RDW 12.3 (11.0-16.0) % Plt Count 190 (160-400) X10*3/uL MPV 11.3 (9.4-12.4) fL Immature Gran % (Auto) 0.3 (0.0-0.4) % Neut % (Auto) 66.1 (45-73) % Lymph % (Auto) 26.6 (20-40) % [place] % (Auto) 5.3 (2-11) % Eos % (Auto) 1.4 (0-4) % Baso % (Auto) 0.3 (0-2) % Lymph # (Auto) 2.7 (1.2-4.9) X10*3/uL [place] # (Auto) 0.5 (0.1-1.2) X10*3/uL Eos # (Auto) 0.1 (0.0-0.4) X10*3/uL Baso # (Auto) 0.0 (0.0-0.2) X10*3/uL Abs Immat Gran (auto) 0.03 (0.00-0.03) X10*3/uL Absolute Neuts (auto) 6.7 (2.0-8.3) x10*3/uL Absolute Nucleated RBC 0.000 (0.0-0.012) X10*3/uL Nucleated RBC % (auto) 0.0 (0.0-0.2) /100WBC Sodium 141 (135-145) mmol/L Potassium 4.6 (3.3-5.1) mmol/L Chloride 109 H (96-108) mmol/L Carbon Dioxide 24 (22-29) mmol/L Anion Gap 13 (12-20) BUN 28 H (9-16) mg/dL Creatinine 1.73 H (0.5-1.4) mg/dL Estim Creat Clear Calc 42.3 Estimated GFR 39 Random Glucose 180 H (60-115) mg/dL Calcium 9.5 D (8.4-10.2) mg/dL Total Bilirubin 0.6 (0.0-1.0) mg/dL AST 30 (5-37) U/L ALT 27 (0-40) U/L Alkaline Phosphatase 77 (39-117) U/L Total Protein 7.6 (6.5-8.0) g/dL Albumin 4.6 (3.5-5.0) g/dL Urine Color Yellow Urine Appearance Clear Urine pH 5.5 (5.0-9.0) Ur Specific [place] 1.020 (1.005-1.025) Urine Protein Trace (Neg-Trace) mg/dL Urine Glucose (UA) Negative (Negative) mg/dL Urine Ketones Negative (Negative) mg/dL Urine Blood Large (3+) H (Negative) Urine Nitrite Negative (Negative) Ur Leukocyte Esterase Negative (Negative) Urine RBC >20 H (0-2) /HPF Urine WBC 0-5 (0-5) /HPF Ur Squamous Epith Cells 0-2 (0-2) /HPF Urine Bacteria None Seen (None Seen) Hyaline Casts 0-2 (0-2) /LPF Independent Interpretation I performed an independent interpretation of an: CT Scan Radiology Impression Discussion of test interpretation with radiology: I have reviewed the radiologist's reading. Radiologist Impression: CT/CT abdomen pelvis wo IV con IMPRESSION: 1. There is moderate left hydronephroureter secondary to a 6 mm ovoid calculus situated within the proximal left ureter. There are further nonobstructing left renal interpolar and lower pole calculi. 2. There is moderate diverticulosis, without acute diverticulitis. No appendicitis is seen. 3. There are degenerative changes of the thoracolumbar spine, most pronounced at L4-L5 and L5-S1. Fleischner guidelines were followed. Discharge Plan Discharge Clinical Impression: Left ureteral stone Patient Disposition: Home, Self-Care Instructions: Ureteral Stones (ED) Additional Instructions: Drink plenty of fluids Pain medication as prescribed Flomax daily till you pass the stone See urologist in a.m. if pain continues Prescriptions: New tamsulosin [Flomax] 0.4 mg capsule 0.4 mg PO BEDTIME Qty: 10 0RF morphine 15 mg tablet 15 mg PO Q8H PRN (Reason: pain) Qty: 15 0RF Rx Instructions: Partial Fill upon patient request. ondansetron 4 mg tablet,disintegrating 4 mg PO Q6-8H PRN (Reason: nausea and vomiting) Qty: 7 0RF No Action oxycodone 5 mg tablet 5 mg PO Q6H PRN (Reason: pain) Qty: 20 0RF tamsulosin [Flomax] 0.4 mg capsule 0.4 mg PO DAILY Qty: 14 0RF erythromycin 5 mg/gram (0.5 %) ointment 0.5 inch ophthalmic (eye) QID 7 Days Qty: 3.5 0RF naproxen 500 mg tablet 500 mg PO BID PRN (Reason: pain) 7 Days Qty: 14 0RF Referrals: Robbi Perry MD [Physician] - 1 day
[2023-05-24] MEDS: Tamsulosin HCL 0.4 MG CAPSULE PO (18:54)
[2023-05-24] MEDS: ondansetron HCL 4 MG/2 ML VIAL IVPUSH (18:56)
[2023-05-24] MEDS: Ketorolac Tromethamine 30 MG/ML VIAL IVPUSH (18:57)
[2023-05-24] MEDS: 0.9 % Sodium Chloride 1,000 ML 999 ML IV (18:58)
[2023-05-24] MEDS: Morphine Sulfate 4 MG/ML CARTRIDGE IVPUSH (19:00)
--- NOTE | 2023-05-24 19:03 | PC.NURSE ---
pt nauseous and had one bout of vomiting while RN was in room. medicated per SEP. fluids running
[2023-05-24 19:51] VITALS: BP 123/69; PULSE 66; RESP 14; O2SAT 92
[2023-05-24 20:18] VITALS: BP 115/63; PULSE 58; RESP 16; O2SAT 95
--- NOTE | 2023-05-24 20:20 | PC.NURSE ---
pt dozing, reports 4/10 pain. vitals stable.
[2023-05-24] MEDS: oxyCODONE HCl Immed Release 5 MG TABLET 10 MG PO (22:54)
--- NOTE | 2023-05-24 22:57 | PC.NURSE ---
Pt a&o, no sob or chest pain, medicated per Sep, Reviewed discharge instructions with pt. pt verbalized understanding, no sign of distress upon diacharge.
[2023-05-24 22:58] VITALS: BP 129/63; PULSE 62; RESP 20; TEMP 36.7; O2SAT 99
== END 2023-05-24 23:04 | disposition home or self-care (01) ==
PROVIDERS: Emergency Provider Internal Medicine
DX: M54.50 Low back pain, unspecified (principal); N20.1 Calculus of ureter; N50.812 Left testicular pain; R11.2 Nausea with vomiting, unspecified; Z79.899 Other long term (current) drug therapy
CPT/HCPCS: 36415; 74176; 80053; 81001; 85025; 96361; 96374; 96375; 99284; 99285; J1885; J2270; J2405

== ENCOUNTER 2023-05-29 15:21 | Outpatient (AMB) | payer MEDICARE, SELFPAY ==
--- NOTE | 2023-05-29 15:24 | MHC.OFFVIS ---
Intake Intake Visit Reasons: Ureteral stone/ Hydroureteronephrosis Intake Note: Patient is Present for Telephone Follow Up Ureteral Stone/Hydroereteronephrosis Urology Med: Tamsulosin Antibiotic Allergy:None Blood Thinner: None Allergies No Known Allergies [No Known Allergies*] Allergy (Verified 05/29/23 15:26) HPI HPI Comments History of Present Illness Details Frank is a 73 year old slovak speaking male who was in the ED on 05/24/23 for obstructing ureteral stone and flank pain. 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 He states states he passed the stones and is feeling better. I reviewed CTAP results- 05/24/23--moderate left hydronephroureter secondary to a 6 mm ovoid calculus situated within the proximal left ureter. There are further nonobstructing left renal interpolar and lower pole calculi. I have discussed at length diet modification to decrease risk of forming more kidney stones. I have discussed low oxalate diet and specific foods to avoid including certain green leafy vegetables, chocalate, nuts, tea, beets, rubarb; low sodium, decreased use of animal protein and the importance of hydration drinking up to 2-2.5 liters of fluids and use of adding lemon to water to increase citrate in the diet. A pamphlet is also provided today. Plan-- renal US fu post [facility] Medical History (Updated 07/06/23 @ 21:56 by Colette Mendoza MD) Kidney stone HTN (hypertension) Diabetes Social History Alcohol intake: never Review of Systems Const All systems reviewed & are unremarkable except as noted in HPI and below Reports no additional complaints Eyes Reports no additional complaints ENT Reports no additional complaints Card Denies dyspnea Resp Denies cough and Denies dyspnea GI Reports no additional complaints Musc Reports no additional complaints Skin/Breast Denies rash and Denies unusual bruising Neuro Reports no additional complaints Psych Reports no additional complaints Endo Reports no additional complaints Matthew/Lymph Reports no additional complaints Aller/Immun Reports no additional complaints Results Reviewed Results Reviewed: Date of Service: 05/24/23 EXAMINATION: CT ABDOMEN AND PELVIS WITHOUT CONTRAST CLINICAL INFORMATION: Left renal colic; question calculus. COMPARISON: CT abdomen and pelvis dated 05/14/2020; renal ultrasound dated 01/27/2019. TECHNIQUE: Multidetector volumetric imaging was performed from the superior aspect of the liver through the pubic symphysis. Sagittal and coronal reformatted images were obtained on the technologist's workstation. This CT examination was performed using dose optimization techniques as appropriate, variously including the following: *Automated exposure control *Adjustment of mA and/or kV according to patient size (this includes techniques or standardized protocols for targeted exams where dose is matched to indication/reason for exam; i.e. extremities or head) *Use of iterative reconstruction technique DLP: 732 mGy-cm FINDINGS: LUNG BASES: The visualized lung bases are unremarkable. LIVER, GALLBLADDER, AND BILIARY TREE: The liver is normal in size, shape, and attenuation. No focal hepatic lesion or biliary ductal dilatation is present. The gallbladder is unremarkable with no evidence of radiopaque gallstones, gallbladder wall thickening, or obvious pericholecystic inflammatory changes. PANCREAS: Unremarkable. SPLEEN: Unremarkable. ADRENAL GLANDS: Unremarkable. KIDNEYS AND URETERS: The kidneys are normal in size, shape, and attenuation. At the upper pole of the left kidney (3:34), a 4.1 cm simple cyst is seen, for which no imaging follow-up is recommended. At the interpolar left kidney (3:38), there are 5 mm and 9 mm nonobstructing calculi. At the lower pole of the left kidney (3:44), a 4 mm nonobstructing calculus is seen. There is moderate left hydronephroureter secondary to a 6 mm ovoid calculus situated within the proximal left ureter. There is moderate left perinephric stranding. No right urinary calculus or obstruction is noted. BLADDER: Partially contracted and otherwise unremarkable. GASTROINTESTINAL TRACT: There is moderate diverticulosis, without acute diverticulitis. No bowel obstruction, free intraperitoneal air or abscess is seen. There is no focal bowel wall thickening. The vermiform appendix is not identified with certainty; however, there is no finding to suggest appendicitis. ABDOMINAL WALL: No significant hernia is appreciated. LYMPH NODES: Normal. VASCULAR: Unremarkable. PELVIC VISCERA: The prostate and seminal vesicles are unremarkable. There are coarse prostate calcifications. OSSEOUS STRUCTURES: At L4-L5 and L5-S1, there is marked degenerative disc disease, with vacuum phenomenon. There is multi-level marked lower thoracic and mild to moderate lumbar spondylosis. No acute or aggressive osseous finding is seen. IMPRESSION: 1. There is moderate left hydronephroureter secondary to a 6 mm ovoid calculus situated within the proximal left ureter. There are further nonobstructing left renal interpolar and lower pole calculi. 2. There is moderate diverticulosis, without acute diverticulitis. No appendicitis is seen. 3. There are degenerative changes of the thoracolumbar spine, most pronounced at L4-L5 and L5-S1. Assessment & Plan Assessment & Plan (1) Kidney stone: Code(s): N20.0 - Calculus of kidney (2) Hydronephrosis: Code(s): N13.30 - Unspecified hydronephrosis Plan Plan-- renal US fu post Telehealth Telehealth Location of provider rendering services: practice address Location of patient: address on file Patient Identification confirmed using: Name, : Yes Telehealth method: voice only Patient verbally consented to treatment: Yes Patient verbally consented to billing insurance company: Yes Patient informed of any privacy concerns related to visit: Yes Minutes spent on Phone/Video with Pt.: 25 Coding Level of Care Code Tele [facility] Pt Level 3 (69014) Diagnoses Kidney stone N20.0 Hydronephrosis N13.30
== END 2023-05-29 16:05 | disposition home or self-care (01) ==
LOC: HO.HUSH 15:21
PROVIDERS: Visit Provider Urology
DX: N13.2 Hydronephrosis with renal and ureteral calculous obstruction (principal)
CPT/HCPCS: 99443

== ENCOUNTER → 2023-05-29 15:21 | Outpatient (BNVA) | payer MEDICARE, SELFPAY | PROVIDERS: Visit Provider Urology ==

== ENCOUNTER 2023-07-04 13:59 | Outpatient (REF) | payer MEDICARE, SELFPAY ==
--- NOTE | ~2023-07-04 | US_ITS ---
EXAMINATION: US RETROPERITONEAL LIMITED (RENAL ONLY) CLINICAL INFORMATION: Calculus of kidney. COMPARISON: CT abdomen and pelvis without contrast 05/24/2023. Ultrasound kidneys and bladder 01/27/2019. TECHNIQUE: Real-time imaging of the kidneys. Limited visualization due to bowel gas. FINDINGS: RIGHT KIDNEY: 10.7 x 5.9 x 5.4 cm (SAG x AP x TRV). There are a few scattered punctate echogenic foci. No hydronephrosis. Limited visualization. Midpole 0.5 cm cortical cyst with benign features. There is no indication for follow-up imaging. LEFT KIDNEY: 11.6 x 6.5 x 6.2 cm (SAG x AP x TRV). No hydronephrosis. [id number] pole calculi measuring up to 0.4 cm. No hydronephrosis. Limited visualization. Midpole 4.1 x 3.4 x 4.0 cm cyst with benign features. There is no indication for follow-up imaging. US/US renal BI IMPRESSION: 1. Left renal nonobstructive calculi. No hydronephrosis. 2. Bilateral renal cysts.
== END 2023-07-04 14:00 | disposition home or self-care (01) ==
LOC: HO.HMGCX 13:59
PROVIDERS: PCP Internal Medicine; Visit Provider Urology
DX: N20.0 Calculus of kidney (principal)
CPT/HCPCS: 76775

== ENCOUNTER 2023-07-12 14:09 | Outpatient (REF) | payer MEDICARE, SELFPAY ==
[2023-07-20 17:49] LABS: Stone Source KIDNEY STONE
== END 2023-07-12 14:10 | disposition home or self-care (01) ==
LOC: HO.LNP 14:09
PROVIDERS: PCP Internal Medicine; Visit Provider Urology
DX: N20.0 Calculus of kidney (principal); N13.30 Unspecified hydronephrosis
CPT/HCPCS: 81003; 82365; 88300; 99212

== ENCOUNTER 2023-07-12 14:09 | Outpatient (AMB) | payer MEDICARE, SELFPAY ==
--- NOTE | 2023-07-12 14:59 | MHC.OFFVIS ---
Intake Intake Visit Reasons: 6 week follow up/ US Intake Note: Patient is Present for Follow Up Ureteral Stone/Hydroereteronephrosis Urology Med: Tamsulosin Antibiotic Allergy:None Blood Thinner: None Tow Picker Required: Yes Information Interpreted: non-clinical & clinical Allergies No Known Allergies [No Known Allergies*] Allergy (Verified 05/29/23 15:26) Medication List - Last Reconciled 07/12/23 by Colette Mendoza MD blood sugar diagnostic ([employer]Touch Ultra Test strips) As directed erythromycin 0.5 inches ophthalmic (eye) QID 7 days glipizide ER 5 mg PO BID lancets (OneTouch Delica Plus Lancet) As directed lisinopril 10 mg PO DAILY metformin 1,000 mg PO BID tamsulosin (Flomax) 0.4 mg PO BEDTIME HPI HPI Comments History of Present Illness Details Frank is a 73 year old malian speaking male who is here for FU. 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 07/12/23--He is here for follow up and states he passed the kidney stones, he has brought in 3 kidney stones. Frank is a 73 year old malian speaking male who was in the ED on 05/24/23 for obstructing ureteral stone and flank pain. 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 He had the fu renal US done and I have reviewed the results with him-- Hydronephrosis is resolved, Left nephrolithiaisis presists, nonobstructing. Review of chart: 05/29/23--I have discussed at length diet modification to decrease risk of forming more kidney stones. I have discussed low oxalate diet and specific foods to avoid including certain green leafy vegetables, chocalate, nuts, tea, beets, rubarb; low sodium, decreased use of animal protein and the importance of hydration drinking up to 2-2.5 liters of fluids and use of adding lemon to water to increase citrate in the diet. A pamphlet is also provided today. Imaging: CTAP results- 05/24/23--moderate left hydronephroureter secondary to a 6 mm ovoid calculus situated within the proximal left ureter. There are further nonobstructing left renal interpolar and lower pole calculi. Plan-- Metabolic w/u Diet modification, send stones for analysis [facility] Medical History Kidney stone HTN (hypertension) Diabetes Social History Alcohol intake: never Review of Systems Const All systems reviewed & are unremarkable except as noted in HPI and below Reports no additional complaints Eyes Reports no additional complaints ENT Reports no additional complaints Card Denies dyspnea Resp Denies cough and Denies dyspnea GI Reports no additional complaints Musc Reports no additional complaints Skin/Breast Denies rash and Denies unusual bruising Neuro Reports no additional complaints Psych Reports no additional complaints Endo Reports no additional complaints Matthew/Lymph Reports no additional complaints Aller/Immun Reports no additional complaints Results Reviewed Results Reviewed: Date of Service: 07/04/23 EXAMINATION: US RETROPERITONEAL LIMITED (RENAL ONLY) CLINICAL INFORMATION: Calculus of kidney. COMPARISON: CT abdomen and pelvis without contrast 05/24/2023. Ultrasound kidneys and bladder 01/27/2019. TECHNIQUE: Real-time imaging of the kidneys. Limited visualization due to bowel gas. FINDINGS: RIGHT KIDNEY: 10.7 x 5.9 x 5.4 cm (SAG x AP x TRV). There are a few scattered punctate echogenic foci. No hydronephrosis. Limited visualization. Midpole 0.5 cm cortical cyst with benign features. There is no indication for follow-up imaging. LEFT KIDNEY: 11.6 x 6.5 x 6.2 cm (SAG x AP x TRV). No hydronephrosis. Pxa-ap-hhgen pole calculi measuring up to 0.4 cm. No hydronephrosis. Limited visualization. Midpole 4.1 x 3.4 x 4.0 cm cyst with benign features. There is no indication for follow-up imaging. IMPRESSION: 1. Left renal nonobstructive calculi. No hydronephrosis. 2. Bilateral renal cysts. Assessment & Plan Assessment & Plan (1) Kidney stone: Code(s): N20.0 - Calculus of kidney (2) Hydronephrosis: Code(s): N13.30 - Unspecified hydronephrosis Plan Plan-- Metabolic w/u Diet modification Orders: Orders Basic Metabolic Panel Today N20.0 - Calculus of kidney Calcium Today N20.0 - Calculus of kidney US renal BI 07/04/23 N20.0 - Calculus of kidney Parathyroid Hormone Related Pr Today N20.0 - Calculus of kidney Patient Instructions: The patient had an opportunity to ask questions regarding treatment plan. All questions were answered. Imaging, Laboratory studies and physical exam results were discussed and reviewed in detail. No major barriers to understanding were identified. The patient expressed understanding and agreement with the above treatment plan. The patient is aware they should contact our office by phone for worsening of their current condition or the appearance of new symptoms. Compliance is encouraged with any medications and followup testing that is ordered. It is a privilege to be allowed the opportunity to participate in the urologic care of your patient. If you have any questions or concerns regarding treatment for the above conditions please do not hesitate to contact me. The office telephone contact is [phone]. This note is constructed in part using voice recognition software. While every effort has been made to ensure accuracy stockroom clerk errors may have been included. Yours sincerely, Colette Mendoza MD Coding Level of Care Code Est Pt Level 4 (52947) Diagnoses Kidney stone N20.0 Hydronephrosis N13.30
== END 2023-07-12 15:23 | disposition home or self-care (01) ==
PROVIDERS: PCP Internal Medicine; Visit Provider Urology
DX: N20.0 Calculus of kidney (principal); N13.30 Unspecified hydronephrosis; Z13.9 Encounter for screening, unspecified
CPT/HCPCS: 99214